=== PATIENT | female | born 1955 | race Caucasian/White ===

== ENCOUNTER 2017-09-17 14:00 | Outpatient (RCR) | payer SELFPAY | END 2017-09-17 19:00 | disposition home or self-care (01) | LOC: PT 14:00 | PROVIDERS: PCP Family Medicine; Visit Provider Podiatrist Foot & Ankle Surgery | DX: M76.821 Posterior tibial tendinitis, right leg (principal); M76.822 Posterior tibial tendinitis, left leg; M54.5 Low back pain ==

== ENCOUNTER → 2017-11-24 12:01 | Outpatient (CLI) | payer SELFPAY ==
[2017-11-24 14:23] LABS: Color, Urine Yellow (Yellow); Glucose, Dipstick Normal (Normal); Ketone-Dipstick Negative (Negative); Leukocyte Esterase-Dipstick Negative /ul (Negative); Nitrite-Dipstick Negative (Negative); Occult Blood-Urine Negative /ul (Negative); Protein-Dipstick Negative (Negative); Urine Bilirubin Dipstick Negative (Negative); Urine Clarity Sl. Cloudy (Clear); Urine Urobilinogen Normal (Normal); Urine pH 6.5 (5.0 - 8.0)
== END ==
PROVIDERS: Family Provider Family Medicine; PCP Family Medicine; Referring Provider Urology; Visit Provider Urology
DX: N39.0 Urinary tract infection, site not specified (principal)
CPT/HCPCS: 81002; 87077; 87086; 87088

== ENCOUNTER → 2018-03-23 10:14 | Outpatient (CLI) | payer SELFPAY ==
[2018-03-01 10:52] VITALS: BMI 23.9
--- NOTE | 2018-03-23 10:23 | US_ITS ---
STUDY: RENAL ULTRASOUND - COMPLETE REASON FOR EXAM: Female, 62 years old. Recurrent urinary tract infection TECHNIQUE: Ultrasound evaluation of the kidneys was performed with real-time and static heaton-scale imaging. COMPARISON: None. FINDINGS: RIGHT KIDNEY: Normal location of the right kidney, which is normal in size. The right kidney measures 9.6 x 4.7 x 3.8 cm. There is a normal cortex of the right kidney. The renal cortex measures 1.0 cm. There is no right renal mass or cyst. There are 2 calculi in the central echo complex measuring 5 and 3 mm. There is no right hydronephrosis. DISTAL RIGHT URETER: There is non-visualization of the distal right ureter. There is no demonstrated right ureterovesical junction calculus. There is a visualized right ureteral jet. LEFT KIDNEY: Normal location of the left kidney, which is normal in size. The left kidney measures 10.3 x 4 0.4, 4.7 cm. There is a normal cortex of the left kidney. The renal cortex measures 1.5 cm. There is no left renal mass or cyst. There are 2 calculi in the central echo complex measuring 3 and 4 mm There is no left hydronephrosis. DISTAL LEFT URETER: There is non-visualization of the distal left ureter. There is no demonstrated left ureterovesical junction calculus. There is a visualized left ureteral jet. AORTA: There is no elongation or tortuosity of the abdominal aorta. Aorta measures: Proximal cm. Middle cm. Distal cm. Aorta measure transversely: Proximal cm. Middle cm. Distal cm. There is no demonstrated aneurysm.. I.V.C.: The IVC is patent. BLADDER: The urinary bladder fills and empties well. US/Kidney and Bladder IMPRESSION: Bilateral calyceal calculi. There are 2 on the right measuring 5 and 3 mm and 2 in the left kidney measuring 3 and 4 mm. No hydronephrosis Electronically Signed: Jay Hall MD at 5:51 EST Tel , Service support ,
== END ==
PROVIDERS: Family Provider Family Medicine; PCP Family Medicine; Referring Provider Urology; Visit Provider Urology
DX: N39.0 Urinary tract infection, site not specified (principal)
CPT/HCPCS: 76770

== ENCOUNTER → 2018-03-31 12:39 | Outpatient (CLI) | payer SELFPAY ==
[2018-03-01 10:52] VITALS: BMI 23.9
--- NOTE | 2018-03-31 12:50 | RAD_ITS ---
STUDY: X-RAY - ABDOMEN/PELVIS REASON FOR EXAM: Female, 62 years old. History of kidney stones. TECHNIQUE: Single AP view of the abdomen / pelvis. COMPARISON: None. FINDINGS: There is mild elevation of the right hemidiaphragm. There is a moderate amount of colonic fecal material. There are nonspecific gaseous bowel loops. No abnormal calcifications are seen in the region of the kidneys. Few pelvic calcifications are seen likely due to phleboliths. Small distal ureteral stone cannot be excluded. Normal soft tissue structures. There is total right hip prosthesis. RAD/Abdomen Single View IMPRESSION: Nonspecific gas pattern. Few small pelvic calcifications as described above. Electronically Signed: Memo Menezes MD at 13:04 EST Tel , Service support ,
== END ==
PROVIDERS: Family Provider Family Medicine; PCP Family Medicine; Referring Provider Urology; Visit Provider Urology
DX: N20.1 Calculus of ureter (principal)
CPT/HCPCS: 74018

== ENCOUNTER → 2018-07-30 08:40 | Outpatient (CLI) | payer SELFPAY ==
[2018-06-07 11:13] VITALS: BMI 23.9
--- NOTE | 2018-07-30 06:43 | CT_ITS ---
STUDY: CT ABDOMEN AND PELVIS WITHOUT CONTRAST REASON FOR EXAM: Female, 62 years old. Kidney stones RADIATION DOSAGE (If Supplied By Facility): CTDIvol = ( 8.13 ) mGy, DLP = ( 406.31 ) mGycm TECHNIQUE: Transaxial images were obtained from the dome of the diaphragm to the symphysis pubis without oral contrast, and without intravenous contrast. Sagittal and coronal images were reconstructed. Individualized dose optimization techniques were used for this CT. COMPARISON: Ultrasound dated 03/23/2018 FINDINGS: Evaluation of the abdominal viscera is limited in the absence of intravenous contrast. The visualized lung bases are clear. The visualized portions of the heart and pericardium are within normal limits. There are no calcified gallstones present. The liver demonstrates an unremarkable unenhanced appearance. The spleen is normal in size. The pancreas demonstrates an unremarkable unenhanced appearance. The adrenal glands are within normal limits. There is a 4 mm nonobstructing right renal stone. There are 2 nonobstructing stones in the collecting system of the left kidney with the larger measuring 3 mm. There are no ureteral stones. There is no hydronephrosis. Normal visualized stomach. There is no bowel obstruction or inflammation. The appendix is visualized and appears normal. The aorta is normal in caliber. There is no abdominal or pelvic free air, free fluid, fluid collection or lymphadenopathy. There are no destructive osseous lesions. The patient is status post left arthroplasty. CT/Abdomen/Pelvis without Cont IMPRESSION: Bilateral subcentimeter nonobstructing renal collecting system stones. No ureteral stones. No hydronephrosis. Electronically Signed: Francisco Ambrose, at 10:27 EDT Tel , Service support ,
== END ==
PROVIDERS: Family Provider Family Medicine; PCP Family Medicine; Referring Provider Urology; Visit Provider Urology
DX: N20.0 Calculus of kidney (principal)
CPT/HCPCS: 74176

== ENCOUNTER 2021-12-28 14:36 | Emergency (ER) | payer MEDICARE, SELFPAY ==
[2021-12-28 14:36] VITALS: BP 167/88; PULSE 97; RESP 16; TEMP 36.4; O2SAT 100; BMI 22.8
--- NOTE | 2021-12-28 14:47 | EX.ED.GENINJ ---
HPI History of Present Illness Chief Complaint: Fall Narrative Narrative: Patient states she was at [employer] and was coming down some steps. She stopped on her landing and then stepped out and apparently missed the second and first step as she was going down. She fell with her left hand out landing on her right shoulder. She states she hit her upper face on the ground. She did not have any epistaxis. She does not complain of nose pain. She states that her upper teeth lacerated the internal portion of her upper lip. No neck pain or headache. No LOC. She is not anticoagulated. Patient has no limitation in range of motion of the left shoulder which she had on the ground. Her left wrist and hand are not swollen or bruised. Her right knee although a little sore is minimally painful and she is able to ambulate. [facility] Medical History Environmental allergies Osteoarthritis Osteopenia Home Medications estradiol 0.01% (0.1 mg/gram) vaginal cream (Estrace) 1 g vaginal QDAY 09/16/17 [History Last Taken Unknown] miscellaneous medical supply 1 ea miscellaneous .PRN PRN chronic pain 12 months #1 ea 07/29/21 [Rx Last Taken Unknown] Allergy/AdvReac Type Severity Reaction Status Date / Time ciprofloxacin [From Cipro] Allergy Mild itching Verified 12/28/21 14:36 penicillin G Allergy Mild itching Verified 12/28/21 14:36 Surgical History History of hip replacement Social History Smoking Status: Never smoker alcohol intake: never substance use type: does not use what type of physical activity do you participate in: yoga frequency: 3-4 times per week ROS ROS ED Constitutional Constitutional ED: Denies chills or fever(s) Eyes Eyes: Denies change in vision ENT ENT ED: Denies rhinorrhea or sore throat Cardiovascular Cardiovascular: Denies chest pain or palpitations Respiratory/Chest Respiratory/Chest: Denies cough or dyspnea Gastrointestinal Gastrointestinal: Denies abdominal pain or constipation Genitourinary Genitourinary ED: Denies dysuria or hematuria Musculoskeletal Musculoskeletal: Reports other Details: Left shoulder pain, left wrist pain, right knee pain ; Denies arthralgias or back pain Integumentary Reports other Details: Superficial internal upper lip laceration Neurologic Neurologic: Denies headache(s) or paresthesias Psychiatric Psychiatric: Denies anxiety or depression EXAM Physical Exam Const Vital Signs: 12/28/21 14:36 12/28/21 14:46 Temperature 97.6 F L Temperature Source Temporal Pulse Rate 97 Respiratory Rate 16 Respiratory Effort Normal Blood Pressure 167/88 H Blood Pressure Mean 114 Pulse Ox 100 Oxygen Delivery Method Room Air Positive well nourished General Appearance ED: NAD HEENT Reports normocephalic, external ears normal, nasal mucous membranes and turbinates normal, moist oral mucous membranes and dentition normal Mouth ED: Yes tongue normal and Yes other Mouth: tongue normal and other Other Details: Superficial internal lip laceration in the upper lip in the midline. Throat: posterior oropharynx normal Eyes PERRL and EOMs intact bilaterally Chest Wall inspection of chest normal Resp normal respiratory effort Auscultation: Negative for rales, rhonchi or wheezes Cardio regular rhythm Back/Spine normal to inspection and no thoracic nor lumbar tenderness Extremity Extremity Narrative: Minimal tenderness to palpation over the left deltoid region. Left shoulder maintains full range of motion. 5/5 shoulder strength. No deformities. Left wrist minimally tender in the midline. There is no deformity. Patient has full range of motion in flexion and extension. No bruising or discharge abrasions. No swelling. Patient has mild tenderness palpation to the right proximal tibia. The patella is nontender. Extensor mechanism intact. No effusion noted. No ligamentous laxity Neuro oriented x3 and CN's II-XII intact bilaterally Motor Exam: strength 5/5 throughout Psych mental status grossly normal MDM MDM MDM Narrative Medical decision making narrative: Patient presenting after fall. She has a superficial lip laceration on upper lip which does not need any sutures. She is counseled on wound care for this. She states she does have some cuts lidocaine at home which was prescribed to her previous that she can use for pain in the lip. I do not believe she needs a CT scan. She does not have any neck pain. Her left shoulder, right knee, left wrist all minimally tender without any deformities. She does not want any x-rays of these areas. She maintains full range of motion. She does not want a thing for pain. I think she is stable for discharge at this point. Impression: 1. Mechanical fall 2. Internal lip laceration 3. Left shoulder contusion 4. Left wrist contusion 5. Right knee contusion Discharge Plan Triage Chief Complaint: Fall ED Provider: Keny Berg Dx/Rx/DC Orders Instructions: ED Contusion, Lower Extremity, ED Contusion, Upper Extremity, ED Laceration, Lip or Mouth, ED Shoulder Contusion Prescriptions: No Action estradiol [Estrace] 0.01 % (0.1 mg/gram) cream 1 g VAGINAL QDAY miscellaneous medical supply Misc 1 ea miscellaneous .PRN PRN (Reason: chronic pain) 360 Days Qty: 1 0RF Rx Instructions: Handicap Placard to use as needed. Valid 5 years from today. Primary Care Provider: Scar Guzman Referrals: Scar Guzman MD [Primary Care Provider] - Disposition Disposition: Home, Self Care Discharge Date/Time: 12/28/21 14:57
== END 2021-12-28 14:57 | disposition home or self-care (01) ==
PROVIDERS: Emergency Provider Student in an Organized Health Care Education/Training Program; PCP Family Medicine; Visit Provider Student in an Organized Health Care Education/Training Program
DX: S01.511A Laceration without foreign body of lip, initial encounter (principal); S60.212A Contusion of left wrist, initial encounter; S80.01XA Contusion of right knee, initial encounter; S40.012A Contusion of left shoulder, initial encounter; W10.9XXA Fall (on) (from) unspecified stairs and steps, initial encounter
CPT/HCPCS: 99282

== ENCOUNTER → 2022-06-24 | Outpatient (CLI) | payer MEDICARE, SELFPAY ==
[2022-06-24 13:54] LABS: Progesterone Level 0.39 ng/mL (See Comment)
[2022-06-24 14:01] LABS: Estradiol 20.3 pg/mL
== END | disposition home or self-care (01) ==
PROVIDERS: PCP Family Medicine; Visit Provider Nurse Practitioner Family
DX: E28.39 Other primary ovarian failure (principal)
CPT/HCPCS: 82627; 82670; 84144; 84403; 82626